=== PATIENT | male | born 1985 | race Caucasian/White ===

== ENCOUNTER 2024-11-06 07:48 | Inpatient (IN) | payer OTHER ==
[~2024-11-06] VITALS: Ht 175.3 cm; Wt 96.0 kg
--- NOTE | 2024-11-06 08:08 | ED.PDOC ---
GI ASSESSMENT HPI Comments HPI: 39 y/o M, BIBA, with PMHx of DM presents to the ED for CC of abdominal pain. EMS reports, patient is coming from work vehicle where friend called emergency medical services d/t patient complaining of abdominal pain with associated symptoms of nausea and vomiting x2days. EMS relays, upon arrival to scene patient was found diaphoretic and lethargic. EKG in the field showed SVT with a HR in the 180's. In route to the ED, patient was given 600mL NS; patient converted into the 130's. Upon arrival, patient's EKG showed ST in the 130's with no change. Patient describes, diarrhea to be loose and yellow in appearance. Patient denies chest pain, shortness of breath, blood in stool, or hematemesis. No other symptoms or modifiers present at this time. Initial Vitals BP: HR: RR: O2: Temp: Past Medical History: DM, "FREQUENT HEART BEATS" Past Surgical History: DENIES ANY Social History: Denies ETOH, smoking, and drug use. Medications: DENIES ANY Allergies: JOSE santacruz, HPI: Poor Historian. REVIEW OF SYSTEMS: CONSTITUTIONAL: Denies acute: fever, diaphoresis, chills, HEAD: Denies acute: headache, photophobia Eyes: Denies acute: Double vision, vision loss, eye pain, eye discharge. EARS: Denies acute: tinnitus, hearing loss, ear discharge, ear pain, THROAT: Denies acute: sore throat, swelling, difficulty swallowing , pain with swallowing, change in voice. NECK: Denies acute: neck pain, neck swelling, stiff neck. HEART: Denies acute : chest pain, palpitations, LUNGS: Denies acute: SOB, wheezing, cough, hemoptysis ABDOMEN: Denies acute: melena , hematemesis, hematochezia SKIN: Denies acute: rash, redness, lesions, itchiness. EXTREMITIES: Denies acute: calf pain, numbness, tingling, weakness, denies pain in extremity. Denies acute: Low back pain. Neuro: Denies acute: focal neurological deficit, motor or sensory focal neurological deficit, tremors, seizure like activity, confusion, dizziness, change in mental status, loss of bowel or bladder function, cauda equina like symptoms. : Denies acute: dysuria, hematuria, flank pain, increase in urinary frequency. PSYCH: Denies acute: hallucination, suicidal ideation, homicidal ideation. PHYSICAL EXAM: General: ------[id number]--acute distress, awake and alert. Head: normocephalic, atraumatic. Neck: supple, trachea is midline, no swelling. Throat: Normal phonation. Eyes:, no erythema, no purulent discharge, no proptosis, no icterus. Heart: regular tachycardia rate in the 130s on EKG, no significant murmur appreciated. Lungs: no apparent respiratory distress, Able to speak in full sentences. No wheezing, no rhonchi, no crackles. No stridors Clear to auscultation bilaterally. Abdomen: Diffuse generalized tender to palpation, non distended, soft, no guarding, no rebound, + bowel sounds. Neuro: Awake, Alert, oriented to name, self, situation, follows commands GCS=15. Speech is normal. Skin: no petechia, no purpura, no cyanosis, non-pale, not jaundice. Lower extremities: --no - Pitting edema no deformity, no focal swelling, no calf TTP. Makes eye contact. moves all four extremities. Face: no apparent facial droop. ED COURSE: DISCLAIMER: This medical document was created using an electronic medical record system with voice recognition software and computerized dictation system. Although this document has been carefully reviewed, there might still be some phonetic and typographical errors. Occasional wrong-word or "sound-alike" substitutions may have occurred due to the inherent limitations of voice recognition software. These areas are purely typographical due to imperfections of the software programs and do not reflect any compromise in the patient's medical care. Please read the chart carefully and recognize, using context, where these substitutions have occurred. Time Seen by MD: 07:50 Reviewed Notes: Nurses Notes, Mitten Stitcher Notes, Medications, Allergies Allergies: Coded Allergies: NO KNOWN ALLERGIES (Unverified , 11/06/24) Home Meds Active Scripts Metformin Hydrochloride (Metformin Hcl) 1,000 Mg Tab, 1 TAB PO BID, #180 TAB 3 Refills Prov:ALLEY FELIX MD 11/09/24 Information Source: Patient, Emergency Med Personnel Mode of Arrival: EMS Timing: Minutes Duration: Since onset Prehospital treatment: None Past Medical History PAST MEDICAL HISTORY: DM Surgical History: Denies all surgeries Family History Family History: Unknown Social History Smoker: Non-Smoker Alcohol: Denies ETOH Use Drugs: Denies Drug Use Lives In: Home Constitutional: reports: sweats; denies: chills, diaphoresis, fatigue, fever, malaise, weakness, others EENTM: denies: blurred vision, double vision, ear bleeding, ear discharge, ear drainage, ear pain, ear ringing, eye pain, eye redness, hearing loss, mouth pain, mouth swelling, nasal discharge, nose bleeding, nose congestion, nose pain, photophobia, tearing, throat pain, throat swelling, voice changes, others Respiratory: denies: cough, hemoptysis, orthopnea, SOB at rest, shortness of breath, SOB with excertion, stridor, wheezing, others Cardiovascular: denies: chest pain, dizzy spells, diaphoresis, Dyspnea on exertion, edema, irregular heart beat, left arm pain, lightheadedness, palpitations, PND, syncope, others Gastrointestinal: reports: abdominal pain, diarrhea, nausea; denies: abdomen distended, blood streaked bowels, constipated, dysphagia, difficulty swallowing, hematemesis, melena, poor appetite, poor fluid intake, rectal bleeding, rectal pain, vomiting, others Genitourinary: denies: burning, dysuria, flank pain, frequency, hematuria, incontinence, penile discharge, penile sore, pain, testicle pain, testicle sw elling, urgency, others Neurological: denies: dizziness, fainting, headache, left sided numbness, left sided weakness, numbness, paresthesia, pre-existing deficit, right sided numbness, right sided weakness, seizure, speech problems, tingling, tremors, weakness, others Musculoskeletal: denies: back pain, gout, joint pain, joint swelling, muscle pain, muscle stiffness, neck pain, others Integumetry: denies: bruises, change in color, change in hair/nails, dryness, laceration, lesions, lumps, rash, wounds, others Allergic/Immunocompromised: denies: Difficulty Healing, Frequent Infections, Hives, Itching, others Hematologic/Lymphatic: denies: anemia, blood clots, easy bleeding, easy bruising, swollen glands, others Endocrine: denies: excessive hunger, excessive sweating, excessive thirst, excessive urination, flushing, intolerance to cold, intolerance to heat, unexplained weight gain, unexplained weight loss, others Psychiatric: denies: anxiety, bipolar disorder, depression, hopeless, panic disorder, schizophrenia, sleepless, suicidal, others All Other Systems: Reviewed and Negative Physical Exam General Appearance: Other HEENT: Other Neck: Other Respiratory: Other Cardiovascular: Other Breast Exam: Other (a) Gastrointestinal: Other (a) Genitalia: Other (a) Pelvic: Other Rectal: Other Extremities: Other Neurologic: Other Cerebellar Function: Other Reflexes: Other Skin: Other Lymphatic: Other Was a procedure done? Was a procedure done?: No GI differential Dx Differential Diagnosis: Appendicitis, Diverticular disease, Gastritis/PUD, Gastroenteritis, Inflammatory BD, Electrolyte Imbalance, Food Poisoning, Bacterial, Viral X-Ray, Labs, Meds, VS Vital Signs Date Time Temp Pulse Resp B/P (MAP) Pulse Ox O2 Delivery O2 Flow Rate FiO2 11/06/24 12:00 118 11/06/24 12:00 98.5 113 17 130/87 (101) 94 98.5 11/06/24 10:47 116 11/06/24 08:55 123 11/06/24 08:30 98.0 140 22 111/83 (92) 98 98.0 11/06/24 08:20 133 27 96 Room Air* 0 21 11/06/24 08:20 98.0 133 27 114/81 (92) 96 98.0 11/06/24 07:51 133 Lab Test 11/06/24 13:07 11/06/24 11:28 11/06/24 10:29 11/06/24 09:34 Range/Units Lactic Acid Level 2.8 *H 3.2 *H 0.4-2.0 mmol/L Troponin I High Sensitivity 4 5 </=54 ng/L Sodium Level 134 L 136-145 mmol/L Potassium Level 3.5 3.5-5.1 mmol/L Chloride Level 100 98-107 mmol/L Carbon Dioxide Level 19 L 20-31 mmol/L Anion Gap 15 5-15 Blood Urea Nitrogen 17 9-23 mg/dL Creatinine 1.37 H 0.700-1.30 mg/dL Glomerular Filtration Rate Calc 67 >90 mL/min BUN/Creatinine Ratio 12.4 10.0-20.0 Serum Glucose 309 H 74-106 mg/dL Calcium Level 7.6 L 8.7-10.4 mg/dL Total Bilirubin 1.1 H 0.2-1.0 mg/dL Aspartate Amino Transferase (AST) 85 H 13-40 U/L Alanine Aminotransferase (ALT) 106 H 7-40 U/L Alkaline Phosphatase 37 L 46-116 U/L Total Protein 5.1 L 5.7-8.2 g/dL Albumin 3.2 3.2-4.8 g/dL Test 11/06/24 08:24 11/06/24 07:57 Range/Units White Blood Count 6.0 4.4-10.8 10^3/uL Red Blood Count 5.65 4.5-5.90 10^6/uL Hemoglobin 16.2 13.5-17.5 g/dL Hematocrit 47.0 41.0-53.0 % Mean Corpuscular Volume 83.2 80.0-100.0 fL Mean Corpuscular Hemoglobin 28.6 28.0-32.0 pg Mean Corpuscular Hemoglobin Concent 34.4 32.0-36.0 g/dL Red Cell Distribution Width 13.5 11.8-14.3 % Platelet Count 220 140-450 10^3/uL Mean Platelet Volume 9.4 6.9-10.8 fL Neutrophils (%) (Auto) 76.5 37.0-80.0 % Lymphocytes (%) (Auto) 14.4 10.0-50.0 % Monocytes (%) (Auto) 8.7 0.0-12.0 % Eosinophils (%) (Auto) 0.0 0.0-7.0 % Basophils (%) (Auto) 0.4 0.0-2.0 % Neutrophils # (Auto) 4.6 1.6-8.6 10 ^3/uL Lymphocytes # (Auto) 0.9 0.4-5.4 10 ^3/uL Monocytes # (Auto) 0.5 0-1.3 10 ^3/uL Eosinophils # (Auto) 0 0-0.8 10 ^3/uL Basophils # (Auto) 0 0-0.2 10 ^3/uL Nucleated Red Blood Cells 0.2 % Sodium Level 132 L 136-145 mmol/L Potassium Level 2.8 L 3.5-5.1 mmol/L Chloride Level 100 98-107 mmol/L Carbon Dioxide Level 14 L 20-31 mmol/L Anion Gap 18 H 5-15 Blood Urea Nitrogen 17 9-23 mg/dL Creatinine 1.49 H 0.700-1.30 mg/dL Glomerular Filtration Rate Calc 61 >90 mL/min BUN/Creatinine Ratio 11.4 10.0-20.0 Serum Glucose 300 H 74-106 mg/dL Hemoglobin A1c 10.0 H <5.7 % A1C Lactic Acid Level 3.5 *H 0.4-2.0 mmol/L Calcium Level 9.3 8.7-10.4 mg/dL Magnesium Level 1.6 1.6-2.6 mg/dL Total Bilirubin 1.5 H 0.2-1.0 mg/dL Aspartate Amino Transferase (AST) 103 H 13-40 U/L Alanine Aminotransferase (ALT) 120 H 7-40 U/L Alkaline Phosphatase 44 L 46-116 U/L Troponin I High Sensitivity 6 </=54 ng/L Total Protein 6.7 5.7-8.2 g/dL Albumin 4.2 3.2-4.8 g/dL Lipase 25 12-53 U/L Urine Color Light-orange Yellow Urine Clarity Turbid H Clear Urine pH 5.5 5.0-9.0 Urine Specific [place] 1.023 1.001-1.035 Urine Protein 1+ H Negative Urine Ketones 2+ H Negative Urine Blood 2+ H Negative /uL Urine Nitrite Negative Negative Urine Bilirubin Negative Negative Urine Urobilinogen Normal Negative mg/dL Urine Leukocyte Esterase Negative Negative /uL Urine RBC 3 0 - 3 /hpf Urine Microscopic WBC 2 0-3 /HPF Urine Squamous Epithelial Cells Few <5 /hpf Urine Bacteria None seen None Seen /hpf Urine Granular Casts Mod 0 /lpf Urine Mucus Few None Seen Urine Glucose 4+ H Normal mg/dL Microbiology Date/Time Source Procedure Growth Status 11/06/24 09:34 Blood Blood Culture - Preliminary NO GROWTH AFTER 72 HOURS OF INCUBATION. Resulted 11/06/24 09:20 Blood Blood Culture - Preliminary NO GROWTH AFTER 72 HOURS OF INCUBATION. Resulted 11/06/24 07:57 Voided Urine Urine Culture - Final Complete [facility] [id number] [facility] [address] Ph: [phone] DIAGNOSTIC IMAGING Diagnostic Imaging Report : [id number] Signed PATIENT: TEREZA OROZCOT: [id number] UNIT: [id number] : 1985 LOC: ER ROOM / BED: / AGE / SEX: 39 / M ADM STATUS: REG ER SERVICE [id number] ORDERING PHYSICIAN: PORSCHE GUTIERREZ DO PROCEDURE(s): CXRP - CHEST PORTABLE REASON: svt, abd pain n/v/d ORDER NUMBER(s): [id number], ACCESSION NUMBER(s): [id number] CHEST RADIOGRAPH Indication: svt, abd pain n/v/d Technique: Single frontal view of the chest was obtained Comparison: None FINDINGS: Lines and Tubes: None Lungs: No focal consolidation. Pleura: No effusion. No pneumothorax. Cardiomediastinal contours: Unremarkable Bones: No acute osseous abnormality. IMPRESSION: No acute cardiopulmonary disease. ATED BY: PRISCILA GUEVARA MD DICTATED DATE/TIME: 11/06/24940 SIGNED BY: PRISCILA GUEVARA MD SIGNED DATE/TIME: 11/06/24940 CC: [place] [address] Ph: [phone] DIAGNOSTIC IMAGING Diagnostic Imaging Report : [id number] Signed PATIENT: TEREZA OROZCOT: [id number] UNIT: [id number] : 1985 LOC: ER ROOM / BED: / AGE / SEX: 39 / M ADM STATUS: REG ER SERVICE 0757 ORDERING PHYSICIAN: PORSCHE GUTIERREZ DO PROCEDURE(s): ABPL - CT AB PEL WO CON-NO ORAL OR IV REASON: svt, abd pain n/v/dsvt, abd pain n/v/d ORDER NUMBER(s): [id number], ACCESSION NUMBER(s): [id number] Exam: CT CT AB PEL WO CON-NO ORAL OR IV History: svt, abd pain n/v/dsvt, abd pain n/v/d Comparison Study: None Technique: Multidetector spiral CT of the abdomen was performed from lung bases to pubic symphysis. Imaging was performed without IV contrast. Axial, coronal and sagittal multiplanar reformats were obtained from the axial data set by the technologist. Radiation Dose : 1. Abdomen/Pelvis: CTDIvol 17.9 mGy, DLP 1128.9 mGy*cm. Findings: Evaluation of solid organs is limited due to lack of intravenous contrast use. Lung Bases: No acute or significant lung base finding. Normal heart size. No pleural or pericardial effusion. Liver: Hepatic steatosis. Hepatomegaly. Gallbladder and Biliary Tree: Unremarkable Spleen: Unremarkable Pancreas: The pancreas is grossly normal in appearance. Adrenal Glands: Unremarkable Kidneys: Kidneys are grossly normal without calculi or hydronephrosis. Bladder: Moderate inflammatory changes associated with the urinary bladder. Bowel: The stomach is grossly normal in appearance. Small bowel and colon are normal in caliber and distribution. The appendix is not visualized; however, no secondary findings of acute appendicitis identified. Ascites: Absent Lymphadenopathy: No mesenteric, retroperitoneal or periportal lymphadenopathy. Abdominal Wall and Mesentery: Nonspecific moderate infiltrative changes in the lower pelvis. There is moderate presacral soft-tissue thickening. Mild inflammatory changes in the left inferior gluteal cleft. Vasculature: The visualized abdominal aorta is normal in size and caliber. Evaluation of abdominal and pelvic vessels is limited due to lack of intravenous contrast. Pelvic Organs: Unremarkable Musculoskeletal: No aggressive focal bony lesions, acute fractures or dislocation. Degenerative changes of the spine. IMPRESSION: Nonspecific moderate inflammatory changes surrounding the urinary bladder and central pelvis. There is presacral soft-tissue thickening, mild perirectal inflammatory change and mild inflammatory change in the left inferior gluteal cleft. ATED BY: DERICK OSMAN MD DICTATED DATE/TIME: 11/06/24920 SIGNED BY: DERICK OSMAN MD SIGNED DATE/TIME: 11/06/24920 CC: Time of 1ST Reevaluation: 08:20 Reevaluation 1ST: Unchanged Patient Education/Counseling: Diagnosis, Treatment Family Education/Counseling: No Family Present Comments Patient presented with the above HPI.---abdominal pain---workup was initiated. patient was found with the above mentioned diagnosis. the following medications were ordered: please refer to order lists of meds and tests obtained by myself Dr. Gutierrez. Patient ED course and VS have been stabilized. Patient has been reassessed in the ED and remained in a stable condition. Pertinent incidental findings were discussed with the patient and/or family. Patient/family voices understanding and is agreeable with plan. Patient has been observed in the ED adequate length of time to insure improvement/stability. Escalation of care considered: Consideration of escalation to observation or admission Patient was ADMITTED to the medicine team for further evaluation and treatment of their presentation. All the reports of any imaging studies that were ordered by myself were reviewed by myself. SEPSIS Sepsis Screen Physician Orders Gripper Installer (11/06/24 ) Chest Portable (11/06/24 07:57) Ova & Parasite Exam (11/06/24 07:57) Ct Ab Pel Wo Con-No Oral Or Iv (11/06/24 07:57) Blood Culture (11/06/24 09:21) Vital Signs Date Time Temp Pulse Resp B/P (MAP) Pulse Ox O2 Delivery O2 Flow Rate FiO2 11/06/24 12:00 118 11/06/24 12:00 98.5 113 17 130/87 (101) 94 98.5 11/06/24 10:47 116 11/06/24 08:55 123 11/06/24 08:30 98.0 140 22 111/83 (92) 98 98.0 11/06/24 08:20 133 27 96 Room Air* 0 21 11/06/24 08:20 98.0 133 27 114/81 (92) 96 98.0 11/06/24 07:51 133 Laboratory Tests Test 11/06/24 08:24 11/06/24 10:29 11/06/24 13:07 Lactic Acid Level 3.5 mmol/L (0.4-2.0) *H 3.2 mmol/L (0.4-2.0) *H 2.8 mmol/L (0.4-2.0) *H White Blood Count 6.0 10^3/uL (4.4-10.8) Departure 1 Departure Time of Disposition: 09:20 Impression: Primary Impression: Abdominal pain Additional Impressions: Diarrhea Hypokalemia Elevated LFTs Abnormal finding on CT scan Sinus tachycardia Disposition: ADMITTED INPATIENT Admit to: Tele Condition: Guarded e-Prescriptions Metformin Hydrochloride (Metformin Hcl) 1,000 Mg Tab 1 TAB PO BID, #180 TAB 3 Refills Prov: ALLEY FELIX MD 11/09/24 Discharged With: Self Critical Care Note Critical Care Time?: Yes (45 min-critical care time only) Stability Stability form required: No Heart Score Heart Score: Heart Score Response (Comments) Value History N/A 0 EKG N/A 0 Age N/A 0 Risk Factors N/A 0 Troponin N/A 0 Total 0 I personally scribed for PORSCHE GUTIERREZ DO ([email or web address]) on 11/06/24 at 08:08. Electronically submitted by Carlee Arredondo ([email or web address]). I personally scribed for PORSCHE GUTIERREZ DO ([email or web address]) on 11/06/24 at 08:19. Electronically submitted by Carlee Arredondo ([email or web address]). I personally scribed for PORSCHE GUTIERREZ DO ([email or web address]) on 11/06/24 at 10:35. Elec tronically submitted by Carlee Arredondo ([email or web address]). I personally scribed for PORSCHE GUTIERREZ DO ([email or web address]) on 11/06/24 at 11:20. Electronically submitted by Carlee Arredondo ([email or web address]). PORSCHE GUTIERREZ DO Nov 06, 2024 08:08
[2024-11-06] MEDS: SODIUM CHLORIDE 0.9% 1,000 ML IV ONE ×3 (08:19→11:13)
[2024-11-06 08:20] VITALS: PULSE 133; RESP 27; O2SAT 96
[2024-11-06 08:48] LABS: Hematocrit 47.0 % (41.0-53.0); Hemoglobin 16.2 g/dL (13.5-17.5); Mean Corpuscular Hemoglobin 28.6 pg (28.0-32.0); Mean Corpuscular Volume 83.2 fL (80.0-100.0); Nucleated Red Blood Cells % 0.2 %
[2024-11-06] MEDS: ONDANSETRON HCL 4 MG/2 ML VIAL IV ONE (08:57)
[2024-11-06 09:08] LABS: Albumin 4.2 g/dL (3.2-4.8); Anion Gap 18 (5-15); BUN/Creatinine Ratio 11.4 (10.0-20.0); Blood Urea Nitrogen 17 mg/dL (9-23); Calcium 9.3 mg/dL (8.7-10.4); Chloride 100 mmol/L (98-107); Total Protein 6.7 g/dL (5.7-8.2)
[2024-11-06 09:09] LABS: Lactic Acid w/Reflex 3.5 mmol/L (0.4-2.0)
[2024-11-06 09:10] LABS: Alanine Aminotransferase 120 U/L (7-40); Alkaline Phosphatase 44 U/L (46-116); Bilirubin, Total 1.5 mg/dL (0.2-1.0); Carbon Dioxide 14 mmol/L (20-31); Glucose 300 mg/dL (74-106); Magnesium 1.6 mg/dL (1.6-2.6); Potassium 2.8 mmol/L (3.5-5.1); Sodium 132 mmol/L (136-145)
--- NOTE | 2024-11-06 09:24 | DVH ---
Exam: CT CT AB PEL WO CON-NO ORAL OR IV History: svt, abd pain n/v/dsvt, abd pain n/v/d Comparison Study: None Technique: Multidetector spiral CT of the abdomen was performed from lung bases to pubic symphysis. I maging was performed without IV contrast. Axial, coronal and sagittal multiplanar reformats were obta ined from the axial data set by the technologist. Radiation Dose : 1. Abdomen/Pelvis: CTDIvol 17.9 mGy, DLP 1128.9 mGy*cm. Findings: Evaluation of solid organs is limited due to lack of intravenous contrast use. Lung Bases: No acute or significant lung base finding. Normal heart size. No pleural or pericardial effusion. Liver: Hepatic steatosis. Hepatomegaly. Gallbladder and Biliary Tree: Unremarkable Spleen: Unremarkable Pancreas: The pancreas is grossly normal in appearance. Adrenal Glands: Unremarkable Kidneys: Kidneys are grossly normal without calculi or hydronephrosis. Bladder: Moderate inflammatory changes associated with the urinary bladder. Bowel: The stomach is grossly normal in appearance. Small bowel and colon are normal in caliber and d istribution. The appendix is not visualized; however, no secondary findings of acute appendicitis reji ntified. Ascites: Absent Lymphadenopathy: No mesenteric, retroperitoneal or periportal lymphadenopathy. Abdominal Wall and Mesentery: Nonspecific moderate infiltrative changes in the lower pelvis. There is moderate presacral soft-tissue thickening. Mild inflammatory changes in the left inferior gluteal cl eft. Vasculature: The visualized abdominal aorta is normal in size and caliber. Evaluation of abdominal a nd pelvic vessels is limited due to lack of intravenous contrast. Pelvic Organs: Unremarkable Musculoskeletal: No aggressive focal bony lesions, acute fractures or dislocation. Degenerative travis es of the spine. IMPRESSION: Nonspecific moderate inflammatory changes surrounding the urinary bladder and central pelvis. There is presacral soft-tissue thickening, mild perirectal inflammatory change and mild inflammatory change in the left inferior gluteal cleft.
[2024-11-06] MEDS: POTASSIUM CHL 20 Meq TABLET PO ONE (09:42)
[2024-11-06] MEDS: CIPROFLOXACIN 400MG/200ML 200 ML IV ONE (09:42)
--- NOTE | 2024-11-06 09:44 | DVH ---
CHEST RADIOGRAPH Indication: svt, abd pain n/v/d Technique: Single frontal view of the chest was obtained Comparison: None FINDINGS: Lines and Tubes: None Lungs: No focal consolidation. Pleura: No effusion. No pneumothorax. Cardiomediastinal contours: Unremarkable Bones: No acute osseous abnormality. IMPRESSION: No acute cardiopulmonary disease.
[2024-11-06 11:14] LABS: Lipase 25 U/L (12-53)
[2024-11-06 12:27] LABS: Albumin 3.2 g/dL (3.2-4.8); Anion Gap 15 (5-15); BUN/Creatinine Ratio 12.4 (10.0-20.0); Bilirubin, Total 1.1 mg/dL (0.2-1.0); Blood Urea Nitrogen 17 mg/dL (9-23); Chloride 100 mmol/L (98-107)
[2024-11-06 12:31] LABS: Alanine Aminotransferase 106 U/L (7-40); Alkaline Phosphatase 37 U/L (46-116); Calcium 7.6 mg/dL (8.7-10.4); Carbon Dioxide 19 mmol/L (20-31); Glucose 309 mg/dL (74-106); Potassium 3.5 mmol/L (3.5-5.1); Sodium 134 mmol/L (136-145); Total Protein 5.1 g/dL (5.7-8.2)
[2024-11-06 12:41] LABS: Urine Protein, UAD 1+ (Negative)
[2024-11-06] MEDS ORDERED: MORPHINE SULFATE INJ 2 MG/ml SYRG IV PRN ×2 (14:00)
[2024-11-06] MEDS ORDERED: ONDANSETRON HCL 4 MG/2 ML VIAL IV PRN (14:00)
[2024-11-06] MEDS ORDERED: NITROGLYCERIN 0.4 MG SL TAB SL PRN (14:00)
[2024-11-06] MEDS ORDERED: DEXTROSE (50%) 50ML SYRG IV PRN (14:00)
--- NOTE | 2024-11-06 14:04 | DVHHP2 ---
History of Present Illness Reason for Visit: Abdominal pain History of Present Illness Melissa Smith is a 39-year-old male with past medical history of diabetes who presents to the ED with abdominal pain, nausea and diarrhea x2 days. Patient also states that the abdominal pain radiated to his chest. He reports no chest pain at this time. 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 He states that he was driving here and was experiencing these symptoms when his friend called EMS for help. Patient reports that he has been having yellowish soft formed diarrhea. He reports that the abdominal pain is in his left and right lower quadrants. Patient states that there are no triggering or alleviating factors. He also reports that he took a Welsh pain medication to help with the abdominal pain with no relief. A Welsh enrollment advisor was used during this process. Also discussed with patient was his left buttock area he states that there was some discomfort there but no longer in pain. Upon examination with the primary nurse and student nurse there is erythema noted but no wound or broken skin. Patient denies any chest pain, shortness of breath, fever, chills, lightheade dness, weakness, dizziness, vomiting, recent trauma or injury, recent sick contacts, recent ingestion of spoiled food, or urinary symptoms. Patient reports that he smokes couple of cigarettes per day. Endocrine: Diabetes Past Surgical History: None Family History: DM, Other (Mom with diabetes) Smoke: <1 pack per day ALCOHOL: none Drugs: None Lives: Other Domestic Violence: Neg Review of Systems Gastrointestinal: Nausea, Abdominal Pain, Diarrhea Allergies: Coded Allergies: NO KNOWN ALLERGIES (Unverified , 11/06/24) Exam Vital Signs Vital Signs Date Time Temp Pulse Resp B/P (MAP) Pulse Ox O2 Delivery O2 Flow Rate FiO2 11/06/24 12:00 98.5 113 17 130/87 (101) 94 98.5 11/06/24 08:20 Room Air* 0 21 General Appearance: Alert, Oriented X3, Cooperative, No acute distress HEENT: Atraumatic, PERRLA, EOMI Respiratory: Clear to auscultation, Normal air movement Cardiovascular: Normal S1, Normal S2 Abdominal: Normal bowel sounds, Soft Extremities: No clubbing, No cyanosis, No edema, Normal pulses Neuro: Normal speech, Strength at 5/5 X4 ext, Normal tone, Sensation intact Psych/Mental Status: Mental status NL, Mood NL Labs/Xrays Labs Test 11/06/24 13:07 11/06/24 11:28 11/06/24 10:29 11/06/24 08:24 Range/Units Troponin I High Sensitivity 4 </=54 ng/L Sodium Level 134 L 136-145 mmol/L Potassium Level 3.5 3.5-5.1 mmol/L Chloride Level 100 98-107 mmol/L Carbon Dioxide Level 19 L 20-31 mmol/L Anion Gap 15 5-15 Blood Urea Nitrogen 17 9-23 mg/dL Creatinine 1.37 H 0.700-1.30 mg/dL Glomerular Filtration Rate Calc 67 >90 mL/min BUN/Creatinine Ratio 12.4 10.0-20.0 Serum Glucose 309 H 74-106 mg/dL Calcium Level 7.6 L 8.7-10.4 mg/dL Total Bilirubin 1.1 H 0.2-1.0 mg/dL Aspartate Amino Transferase (AST) 85 H 13-40 U/L Alanine Aminotransferase (ALT) 106 H 7-40 U/L Alkaline Phosphatase 37 L 46-116 U/L Total Protein 5.1 L 5.7-8.2 g/dL Albumin 3.2 3.2-4.8 g/dL White Blood Count 6.0 4.4-10.8 10^3/uL Red Blood Count 5.65 4.5-5.90 10^6/uL Hemoglobin 16.2 13.5-17.5 g/dL Hematocrit 47.0 41.0-53.0 % Mean Corpuscular Volume 83.2 80.0-100.0 fL Mean Corpuscular Hemoglobin 28.6 28.0-32.0 pg Mean Corpuscular Hemoglobin Concent 34.4 32.0-36.0 g/dL Red Cell Distribution Width 13.5 11.8-14.3 % Platelet Count 220 140-450 10^3/uL Mean Platelet Volume 9.4 6.9-10.8 fL Neutrophils (%) (Auto) 76.5 37.0-80.0 % Lymphocytes (%) (Auto) 14.4 10.0-50.0 % Monocytes (%) (Auto) 8.7 0.0-12.0 % Eosinophils (%) (Auto) 0.0 0.0-7.0 % Basophils (%) (Auto) 0.4 0.0-2.0 % Neutrophils # (Auto) 4.6 1.6-8.6 10 ^3/uL Lymphocytes # (Auto) 0.9 0.4-5.4 10 ^3/uL Monocytes # (Auto) 0.5 0-1.3 10 ^3/uL Eosinophils # (Auto) 0 0-0.8 10 ^3/uL Basophils # (Auto) 0 0-0.2 10 ^3/uL Nucleated Red Blood Cells 0.2 % Magnesium Level 1.6 1.6-2.6 mg/dL Lipase 25 12-53 U/L Test 11/06/24 07:57 Range/Units Urine Color Light-orange Yellow Urine Clarity Turbid H Clear Urine pH 5.5 5.0-9.0 Urine Specific [place] 1.023 1.001-1.035 Urine Protein 1+ H Negative Urine Ketones 2+ H Negative Urine Blood 2+ H Negative /uL Urine Nitrite Negative Negative Urine Bilirubin Negative Negative Urine Urobilinogen Normal Negative mg/dL Urine Leukocyte Esterase Negative Negative /uL Urine RBC 3 0 - 3 /hpf Urine Microscopic WBC 2 0-3 /HPF Urine Squamous Epithelial Cells Few <5 /hpf Urine Bacteria None seen None Seen /hpf Urine Granular Casts Mod 0 /lpf Urine Mucus Few None Seen Urine Glucose 4+ H Normal mg/dL CHEST RADIOGRAPH Indication: svt, abd pain n/v/d Technique: Single frontal view of the chest was obtained Comparison: None FINDINGS: Lines and Tubes: None Lungs: No focal consolidation. Pleura: No effusion. No pneumothorax. Cardiomediastinal contours: Unremarkable Bones: No acute osseous abnormality. IMPRESSION: No acute cardiopulmonary disease. Exam: CT CT AB PEL WO CON-NO ORAL OR IV History: svt, abd pain n/v/dsvt, abd pain n/v/d Comparison Study: None Technique: Multidetector spiral CT of the abdomen was performed from lung bases to pubic symphysis. Imaging was performed without IV contrast. Axial, coronal and sagittal multiplanar reformats were obtained from the axial data set by the technologist. Radiation Dose : 1. Abdomen/Pelvis: CTDIvol 17.9 mGy, DLP 1128.9 mGy*cm. Findings: Evaluation of solid organs is limited due to lack of intravenous contrast use. Lung Bases: No acute or significant lung base finding. Normal heart size. No pleural or pericardial effusion. Liver: Hepatic steatosis. Hepatomegaly. Gallbladder and Biliary Tree: Unremarkable Spleen: Unremarkable Pancreas: The pancreas is grossly normal in appearance. Adrenal Glands: Unremarkable Kidneys: Kidneys are grossly normal without calculi or hydronephrosis. Bladder: Moderate inflammatory changes associated with the urinary bladder. Bowel: The stomach is grossly normal in appearance. Small bowel and colon are normal in caliber and distribution. The appendix is not visualized; however, no secondary findings of acute appendicitis identified. Ascites: Absent Lymphadenopathy: No mesenteric, retroperitoneal or periportal lymphadenopathy. Abdominal Wall and Mesentery: Nonspecific moderate infiltrative changes in the lower pelvis. There is moderate presacral soft-tissue thickening. Mild inflammatory changes in the left inferior gluteal cleft. Vasculature: The visualized abdominal aorta is normal in size and caliber. Evaluation of abdominal and pelvic vessels is limited due to lack of intravenous contrast. Pelvic Organs: Unremarkable Musculoskeletal: No aggressive focal bony lesions, acute fractures or dislocation. Degenerative changes of the spine. IMPRESSION: Nonspecific moderate inflammatory changes surrounding the urinary bladder and central pelvis. There is presacral soft-tissue thickening, mild perirectal inflammatory change and mild inflammatory change in the left inferior gluteal cleft. Assessment/Plan Assessment/Plan Assessment Lactic acidosis likely septic Intractable abdominal pain with nausea and diarrhea Rule out C diff Hyponatremia JOSE D Hyperbilirubinemia Erythema on left gluteal possible cellulitis Obesity Tobacco use History of diabetes Plan UA CT abdomen and pelvis NS 3 L given ED Ciprofloxacin given in ED IV antibiotics-vancomycin +Zosyn Antiemetics Pain management Blood cultures EKG Troponin negative x3 Stool OB Stool WBC Stool bacterial Ova and parasites C diff panel EKG Chest x-ray Mag level Lipase Wound culture Gram stain Diet IV fluids Per patient does not take any prescribed home medications DVT prophylaxis-not indicated patient ambulating PUD prophylaxis-PPIs Discussed plan of care with patient and nurse Counseled patient on lifestyle modification, diet, and exercise Counseled patient on cessation of tobacco use [id number] Behavior change smoking greater than 10 minutes [id number] Preventive counseling healthy eating habits, physical activity, and regular checkups Plan discussed with: Patient My Orders Orders - IGOR MINAYA Procedure Category Date Status Time Hemoglobin A1c LAB 11/06/24 Verified 14:00 Glucose Blood PHA 11/06/24 Verified (Accu-Chek Comfort 17:00 Mild Sliding Scale PHA 11/06/24 Verified 17:00 Dextrose 50% Syringe PHA 11/06/24 Verified 14:00 Admit ADMIT 11/06/24 Verified 14:00 Allergies CHRISTEL 11/06/24 Verified 14:00 Code Status CODE 11/06/24 Verified 14:00 Hydrocodone-Acet PHA 11/06/24 Verified 5/325mg Tab ([place] 14:00 Ondansetron Hcl PHA 11/06/24 Verified (Zofran) 14:00 Complete Blood Count LAB 11/07/24 Verified 04:00 Date of Service: Nov 06, 2024 Billing Provider: IGOR MINAYA Common Visit Codes: [id number] INP/OBS CARE (HIGH) Secondary Visit Codes: [id number] COUNSELING IND, [id number] CHNG SMOKING >10MIN IGOR MINAYA Nov 06, 2024 14:04
[2024-11-06 14:09] LABS: Lactic Acid w/Reflex 2.8 mmol/L (0.4-2.0)
[2024-11-06] MEDS: SODIUM CHLORIDE 0.9% 1,000 ML IV SCH (14:45)
[2024-11-06] MEDS ORDERED: VANCOMYCIN PER PHARMACY 0 MG IV SCH (15:00)
[2024-11-06] MEDS: PIPERACILLIN-TAZOB 3.375GM 100 ML IV ONE (15:36)
[2024-11-06] MEDS: PANTOPRAZOLE 40 MG/10 ML VIAL INJ IV SCH (15:53)
[2024-11-06] MEDS: VANCOMYCIN 1GM/200ML PM 250 ML IV SCH (16:57)
[2024-11-06] MEDS: ACCU-CHEK COMFORT CURVE STRIP VI SCH (17:10)
[2024-11-06] MEDS: InsuLIN REG 1unit/0.01ml Soln (100units/ml) SC SCH (17:13)
[2024-11-06 17:40] VITALS: BP 120/77; PULSE 125; PULSE 154; RESP 18; RESP 20; TEMP 97.3; O2SAT 93; O2SAT 98
[2024-11-06 21:00] VITALS: BP_SYST 106; BP_DIAS 55; BP_DIAS 74; PULSE 124; PULSE 84; RESP 18; RESP 20; TEMP 97.7; O2SAT 94
[2024-11-06] MEDS: PIPERACILLIN-TAZOB 3.375GM 100 ML IV SCH (22:33)
[2024-11-07] VITALS (7 sets, daily range): BP systolic 101–131; BP diastolic 58–94; PULSE 130–146; RESP 17–22; TEMP 97.9–100.6; O2SAT 94–97
[2024-11-07] MEDS: ACETAMINOPHEN 325 MG TAB PO PRN (00:41)
[2024-11-07 07:14] LABS: Hematocrit 42.5 % (41.0-53.0); Hemoglobin 14.4 g/dL (13.5-17.5); Mean Corpuscular Hemoglobin 28.0 pg (28.0-32.0); Mean Corpuscular Volume 82.5 fL (80.0-100.0); Nucleated Red Blood Cells % 0.2 %
[2024-11-07 07:24] LABS: Albumin 3.7 g/dL (3.2-4.8); Anion Gap 17 (5-15); BUN/Creatinine Ratio 11.4 (10.0-20.0); Blood Urea Nitrogen 13 mg/dL (9-23); Calcium 9.3 mg/dL (8.7-10.4); Chloride 104 mmol/L (98-107); Sodium 136 mmol/L (136-145); Total Protein 6.1 g/dL (5.7-8.2)
[2024-11-07 07:25] LABS: Bilirubin, Total 0.8 mg/dL (0.2-1.0)
[2024-11-07 07:29] LABS: Alanine Aminotransferase 80 U/L (7-40); Alkaline Phosphatase 35 U/L (46-116); Carbon Dioxide 15 mmol/L (20-31); Glucose 189 mg/dL (74-106); Potassium 3.1 mmol/L (3.5-5.1)
[2024-11-07] MEDS: VANCOMYCIN 1.5GM/300ML 300 ML IV SCH (12:03)
--- NOTE | 2024-11-07 12:51 | DVHPN2 ---
Reviewed: Care Plan, H&P, Labs, Medications, Previous Orders, Radiology Changes from previous H/P or p: No Changes Gastrointestinal: Nausea, Abdominal Pain, Diarrhea Objective Vitals Vital Signs Date Time Temp Pulse Resp B/P (MAP) Pulse Ox O2 Delivery O2 Flow Rate FiO2 11/07/24 09:00 97.9 137 18 131/90 (104) 97 97.9 11/06/24 20:00 Room Air* 0 21 Intake/Output Intake and Output 11/07/24 07:00 Intake Total 4250 ml Balance 4250 ml Intake Oral 500 ml IV Total 3750 ml # Voids 4 # Bowel Movements 1 Medications Current Medications Medications Dose Ordered Sig/Dada Route Start Time Stop Time Status Last Admin Dose Admin Diagnostic Test (Pha) 1 strip ACHS 11/06/24 17:00 11/07/24 11:57 1 STRIP Insulin Human Regular ACHS SC 11/06/24 17:00 11/07/24 11:59 4 UNITS Dextrose 50 ml UD PRN IV 11/06/24 14:00 Acetaminophen/ Hydrocodone Bitart 1 tab Q4HP PRN PO 11/06/24 14:00 Ondansetron HCl 4 mg Q4HP PRN IV 11/06/24 14:00 Acetaminophen 650 mg Q6HP PRN PO 11/06/24 14:00 11/07/24 00:41 650 MG Morphine Sulfate 2 mg Q4HPRN PRN IV 11/06/24 14:00 Nitroglycerin 0.4 mg Q5MINP PRN SL 11/06/24 14:00 Morphine Sulfate 2 mg Q30M PRN IV 11/06/24 14:00 Sodium Chloride 1,000 ml @ 125 mls/hr Q8H IV 11/06/24 14:45 11/06/24 23:09 125 MLS/HR Vancomycin HCl 0 ml @ 0 mls/hr UD IV 11/06/24 15:00 Piperacillin Sod/ Tazobactam Sod 100 ml @ 25 mls/hr Q8HR IV 11/06/24 22:00 11/07/24 05:23 25 MLS/HR Pantoprazole Sodium 40 mg DAILY IV 11/06/24 15:45 11/07/24 10:59 40 MG Vancomycin HCl 300 ml @ 200 mls/hr Q12H IV 11/07/24 10:00 11/07/24 12:03 200 MLS/HR Laboratory Results Laboratory Tests 11/07/24 06:15 Chemistry Test 11/07/24 06:15 Albumin 3.7 g/dL (3.2-4.8) Calcium Level 9.3 mg/dL (8.7-10.4) Total Protein 6.1 g/dL (5.7-8.2) LFT Test 11/07/24 06:15 Alanine Aminotransferase (ALT) 80 U/L (7-40) H Alkaline Phosphatase 35 U/L (46-116) L Aspartate Amino Transferase (AST) 57 U/L (13-40) H Total Bilirubin 0.8 mg/dL (0.2-1.0) Urinalysis Test 11/06/24 07:57 Urine Color Light-orange (Yellow) Urine Clarity Turbid (Clear) H Urine pH 5.5 (5.0-9.0) Urine Specific [place] 1.023 (1.001-1.035) Urine Protein 1+ (Negative) H Urine Ketones 2+ (Negative) H Urine Blood 2+ /uL (Negative) H Urine Nitrite Negative (Negative) Urine Bilirubin Negative (Negative) Urine Urobilinogen Normal mg/dL (Negative) Urine Leukocyte Esterase Negative /uL (Negative) Urine RBC 3 /hpf (0 - 3) Urine Microscopic WBC 2 /HPF (0-3) Urine Squamous Epithelial Cells Few /hpf (<5) Urine Bacteria None seen /hpf (None Seen) Urine Granular Casts Mod /lpf (0) Urine Mucus Few (None Seen) Urine Glucose 4+ mg/dL (Normal) H Microbiology Microbiology Date/Time Source Procedure Growth Status 11/06/24 14:30 Stool Stool Culture - Preliminary Resulted 11/06/24 14:30 Stool Shiga Toxin I & II - Final Resulted 11/06/24 14:30 Stool Clostridium difficile Toxin Assay - Final Resulted 11/06/24 09:34 Blood Blood Culture - Preliminary NO GROWTH AFTER 24 HOURS OF INCUBATION. Resulted 11/06/24 07:57 Voided Urine Urine Culture - Preliminary Resulted Labs and/or images reviewed: Labs reviewed by me, Image(s) reviewed by me Assessment/Plan Assessment/Plan Uncontrolled diabetes with blood sugars 300 A1c 10.0: Insulin aggressive sliding scale Abdominal pain with the nausea and diarrhea: C diff negative stool cultures negative blood cultures negative JOSE D Chronic current smoker Acute lactic acidosis Acute dehydration Plan discussed with: Patient Date of Service: Nov 07, 2024 Billing Provider: ALLEY FELIX MD Common Visit Codes: [id number] INP/OBS CARE(HIGH) ALLEY FELIX MD Nov 07, 2024 12:51
[2024-11-07] MEDS ORDERED: DEXTROSE (50%) 50ML SYRG IV PRN ×2 (17:15)
[2024-11-07] MEDS: InsuLIN REG 1unit/0.01ml Soln (100units/ml) SC SCH ×2 (18:06→22:14)
[2024-11-07] MEDS ORDERED: ACCU-CHEK COMFORT CURVE STRIP VI SCH (22:00)
[2024-11-07] MEDS ORDERED: InsuLIN REG 1unit/0.01ml Soln (100units/ml) SC SCH (22:00)
[2024-11-07] MEDS: ACCU-CHEK COMFORT CURVE STRIP VI SCH (22:10)
[2024-11-08 01:00] VITALS: BP 111/72; PULSE 126; RESP 22; TEMP 100.1; O2SAT 95
[2024-11-08 05:00] VITALS: BP 121/79; PULSE 122; RESP 24; TEMP 97.4; O2SAT 96
[2024-11-08] MEDS ORDERED: InsuLIN REG 1unit/0.01ml Soln (100units/ml) SC SCH (07:00)
--- NOTE | 2024-11-08 08:52 | DVHPN2 ---
Reviewed: Care Plan, H&P, Labs, Medications, Previous Orders, Radiology Changes from previous H/P or p: No Changes Gastrointestinal: Nausea, Abdominal Pain, Diarrhea Objective Vitals Vital Signs Date Time Temp Pulse Resp B/P (MAP) Pulse Ox O2 Delivery O2 Flow Rate FiO2 11/08/24 05:00 97.4 122 24 121/79 (93) 96 97.4 11/07/24 20:00 Room Air* 0 21 Intake/Output Intake and Output 11/08/24 07:00 Intake Total 1375 ml Balance 1375 ml Intake Oral 1275 ml IV Total 100 ml # Voids 6 Medications Current Medications Medications Dose Ordered Sig/Dada Route Start Time Stop Time Status Last Admin Dose Admin Acetaminophen/ Hydrocodone Bitart 1 tab Q4HP PRN PO 11/06/24 14:00 Ondansetron HCl 4 mg Q4HP PRN IV 11/06/24 14:00 Acetaminophen 650 mg Q6HP PRN PO 11/06/24 14:00 11/08/24 00:30 650 MG Morphine Sulfate 2 mg Q4HPRN PRN IV 11/06/24 14:00 Nitroglycerin 0.4 mg Q5MINP PRN SL 11/06/24 14:00 Morphine Sulfate 2 mg Q30M PRN IV 11/06/24 14:00 Sodium Chloride 1,000 ml @ 125 mls/hr Q8H IV 11/06/24 14:45 11/06/24 23:09 125 MLS/HR Pantoprazole Sodium 40 mg DAILY IV 11/06/24 15:45 11/07/24 10:59 40 MG Diagnostic Test (Pha) 1 strip ACHS 11/07/24 22:00 11/08/24 06:34 1 STRIP Insulin Human Regular AC SC 11/07/24 18:01 11/08/24 06:34 4 UNITS Insulin Human Regular HS SC 11/07/24 22:00 11/07/24 22:14 4 UNITS Dextrose 50 ml UD PRN IV 11/07/24 17:15 Laboratory Results Laboratory Tests 11/07/24 06:15 Urinalysis Test 11/06/24 07:57 Urine Color Light-orange (Yellow) Urine Clarity Turbid (Clear) H Urine pH 5.5 (5.0-9.0) Urine Specific [place] 1.023 (1.001-1.035) Urine Protein 1+ (Negative) H Urine Ketones 2+ (Negative) H Urine Blood 2+ /uL (Negative) H Urine Nitrite Negative (Negative) Urine Bilirubin Negative (Negative) Urine Urobilinogen Normal mg/dL (Negative) Urine Leukocyte Esterase Negative /uL (Negative) Urine RBC 3 /hpf (0 - 3) Urine Microscopic WBC 2 /HPF (0-3) Urine Squamous Epithelial Cells Few /hpf (<5) Urine Bacteria None seen /hpf (None Seen) Urine Granular Casts Mod /lpf (0) Urine Mucus Few (None Seen) Urine Glucose 4+ mg/dL (Normal) H Microbiology Microbiology Date/Time Source Procedure Growth Status 11/06/24 14:30 Stool Stool Culture - Preliminary Resulted 11/06/24 14:30 Stool Shiga Toxin I & II - Final Resulted 11/06/24 14:30 Stool Clostridium difficile Toxin Assay - Final Resulted 11/06/24 09:34 Blood Blood Culture - Preliminary NO GROWTH AFTER 24 HOURS OF INCUBATION. 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
[2024-11-08 09:00] VITALS: BP 125/87; PULSE 123; RESP 17; TEMP 98.5; O2SAT 96
[2024-11-08] MEDS: HYDROcodone-ACET 5/325MG TAB PO PRN (09:47)
[2024-11-08 13:00] VITALS: BP 94/72; PULSE 131; RESP 17; TEMP 98.2; O2SAT 97
[2024-11-08 17:00] VITALS: BP 116/87; PULSE 74; RESP 16; TEMP 97.8; O2SAT 94
[2024-11-08 21:00] VITALS: BP 128/80; PULSE 133; RESP 18; TEMP 99; O2SAT 96
[2024-11-09 01:00] VITALS: BP 123/90; PULSE 123; RESP 20; TEMP 98.6; O2SAT 96
[2024-11-09 05:00] VITALS: BP 131/84; PULSE 126; RESP 20; TEMP 98.1; O2SAT 94
[2024-11-09 08:00] VITALS: RESP 20
[2024-11-09 09:00] VITALS: BP 113/86; PULSE 127; RESP 18; TEMP 98.9; O2SAT 96
[2024-11-09] MEDS ORDERED: METF-372 PO (09:54)
--- NOTE | 2024-11-09 09:55 | DVHPN2 ---
Reviewed: Care Plan, H&P, Labs, Medications, Previous Orders, Radiology Changes from previous H/P or p: No Changes Gastrointestinal: Nausea, Abdominal Pain, Diarrhea Objective Vitals Vital Signs Date Time Temp Pulse Resp B/P (MAP) Pulse Ox O2 Delivery O2 Flow Rate FiO2 11/09/24 09:00 98.9 127 18 113/86 (95) 96 98.9 11/09/24 08:00 Room Air* 0 21 Intake/Output Intake and Output 11/09/24 07:00 Intake Total 2030 ml Balance 2030 ml Intake Oral 2030 ml # Voids 10 # Bowel Movements 6 Medications Current Medications Medications Dose Ordered Sig/Dada Route Start Time Stop Time Status Last Admin Dose Admin Acetaminophen/ Hydrocodone Bitart 1 tab Q4HP PRN PO 11/06/24 14:00 11/08/24 09:47 1 TAB Ondansetron HCl 4 mg Q4HP PRN IV 11/06/24 14:00 Acetaminophen 650 mg Q6HP PRN PO 11/06/24 14:00 11/08/24 00:30 650 MG Morphine Sulfate 2 mg Q4HPRN PRN IV 11/06/24 14:00 Nitroglycerin 0.4 mg Q5MINP PRN SL 11/06/24 14:00 Morphine Sulfate 2 mg Q30M PRN IV 11/06/24 14:00 Sodium Chloride 1,000 ml @ 125 mls/hr Q8H IV 11/06/24 14:45 11/06/24 23:09 125 MLS/HR Pantoprazole Sodium 40 mg DAILY IV 11/06/24 15:45 11/07/24 10:59 40 MG Diagnostic Test (Pha) 1 strip ACHS 11/07/24 22:00 11/09/24 06:03 1 STRIP Insulin Human Regular AC SC 11/07/24 18:01 11/09/24 06:08 12 UNITS Insulin Human Regular HS SC 11/07/24 22:00 11/08/24 22:08 4 UNITS Dextrose 50 ml UD PRN IV 11/07/24 17:15 Laboratory Results Laboratory Tests 11/07/24 06:15 Urinalysis Test 11/06/24 07:57 Urine Color Light-orange (Yellow) Urine Clarity Turbid (Clear) H Urine pH 5.5 (5.0-9.0) Urine Specific [place] 1.023 (1.001-1.035) Urine Protein 1+ (Negative) H Urine Ketones 2+ (Negative) H Urine Blood 2+ /uL (Negative) H Urine Nitrite Negative (Negative) Urine Bilirubin Negative (Negative) Urine Urobilinogen Normal mg/dL (Negative) Urine Leukocyte Esterase Negative /uL (Negative) Urine RBC 3 /hpf (0 - 3) Urine Microscopic WBC 2 /HPF (0-3) Urine Squamous Epithelial Cells Few /hpf (<5) Urine Bacteria None seen /hpf (None Seen) Urine Granular Casts Mod /lpf (0) Urine Mucus Few (None Seen) Urine Glucose 4+ mg/dL (Normal) H Microbiology Microbiology Date/Time Source Procedure Growth Status 11/06/24 14:30 Stool Stool Culture - Final Complete 11/06/24 14:30 Stool Shiga Toxin I & II - Final Complete 11/06/24 14:30 Stool Clostridium difficile Toxin Assay - Final Complete 11/06/24 09:34 Blood Blood Culture - Preliminary NO GROWTH AFTER 72 HOURS OF INCUBATION. 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
--- NOTE | 2024-11-09 10:00 | DVHDS2 ---
Discharge Summary Date of Admission Nov 06, 2024 at 14:00 Date of Discharge: Nov 09, 2024 Admitting Diagnosis Generalized weakness Wounds: None Labs/Diagnostic Data: Laboratory Results Test 11/09/24 05:58 11/07/24 06:15 11/06/24 15:00 11/06/24 14:30 POC Glucose 259 mg/dl (70-106) White Blood Count 4.8 10^3/uL (4.4-10.8) Red Blood Count 5.15 10^6/uL (4.5-5.90) Hemoglobin 14.4 g/dL (13.5-17.5) Hematocrit 42.5 % (41.0-53.0) Mean Corpuscular Volume 82.5 fL (80.0-100.0) Mean Corpuscular Hemoglobin 28.0 pg (28.0-32.0) Mean Corpuscular Hemoglobin Concent 33.9 g/dL (32.0-36.0) Red Cell Distribution Width 13.8 % (11.8-14.3) Platelet Count 205 10^3/uL (140-450) Mean Platelet Volume 9.4 fL (6.9-10.8) Neutrophils (%) (Auto) 77.2 % (37.0-80.0) Lymphocytes (%) (Auto) 14.5 % (10.0-50.0) Monocytes (%) (Auto) 7.9 % (0.0-12.0) Eosinophils (%) (Auto) 0.3 % (0.0-7.0) Basophils (%) (Auto) 0.1 % (0.0-2.0) Neutrophils # (Auto) 3.7 10 ^3/uL (1.6-8.6) Lymphocytes # (Auto) 0.7 10 ^3/uL (0.4-5.4) Monocytes # (Auto) 0.4 10 ^3/uL (0-1.3) Eosinophils # (Auto) 0 10 ^3/uL (0-0.8) Basophils # (Auto) 0 10 ^3/uL (0-0.2) Nucleated Red Blood Cells 0.2 % Sodium Level 136 mmol/L (136-145) Potassium Level 3.1 mmol/L (3.5-5.1) Chloride Level 104 mmol/L (98-107) Carbon Dioxide Level 15 mmol/L (20-31) Anion Gap 17 (5-15) Blood Urea Nitrogen 13 mg/dL (9-23) Creatinine 1.14 mg/dL (0.700-1.30) Glomerular Filtration Rate Calc 84 mL/min (>90) BUN/Creatinine Ratio 11.4 (10.0-20.0) Serum Glucose 189 mg/dL (74-106) Calcium Level 9.3 mg/dL (8.7-10.4) Total Bilirubin 0.8 mg/dL (0.2-1.0) Aspartate Amino Transferase (AST) 57 U/L (13-40) Alanine Aminotransferase (ALT) 80 U/L (7-40) Alkaline Phosphatase 35 U/L (46-116) Total Protein 6.1 g/dL (5.7-8.2) Albumin 3.7 g/dL (3.2-4.8) Random Vancomycin Level 4.9 ug/mL (5-10) Lactic Acid Level 3.8 mmol/L (0.4-2.0) Stool Occult Blood Negative (Negative) Stool Occult Blood Sample #3 (Negative) Stool for White Cells Rare Test 11/06/24 11:28 11/06/24 08:24 11/06/24 07:57 Troponin I High Sensitivity 4 ng/L (</=54) Hemoglobin A1c 10.0 % A1C (<5.7) Magnesium Level 1.6 mg/dL (1.6-2.6) Lipase 25 U/L (12-53) Urine Color Light-orange (Yellow) Urine Clarity Turbid (Clear) Urine pH 5.5 (5.0-9.0) Urine Specific [place] 1.023 (1.001-1.035) Urine Protein 1+ (Negative) Urine Ketones 2+ (Negative) Urine Blood 2+ /uL (Negative) Urine Nitrite Negative (Negative) Urine Bilirubin Negative (Negative) Urine Urobilinogen Normal mg/dL (Negative) Urine Leukocyte Esterase Negative /uL (Negative) Urine RBC 3 /hpf (0 - 3) Urine Microscopic WBC 2 /HPF (0-3) Urine Squamous Epithelial Cells Few /hpf (<5) Urine Bacteria None seen /hpf (None Seen) Urine Granular Casts Mod /lpf (0) Urine Mucus Few (None Seen) Urine Glucose 4+ mg/dL (Normal) Other Laboratory Tests 11/07/24 06:15 Brief Hx & Hospital Course: 39-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 Complained of generalized weakness and nausea with some vomiting. CT abdomen pelvis without contrast negative found to have new onset diabetes with a blood sugars in the range of 300 with a A1c 10.2. Patient on insulin sliding scale. Patient was taught about checking his blood sugars for his new onset diabetes. Blood sugars controlled now patient feels better no nausea discharged home on metformin prescription for Accu-Chek machine lancets and test strips given to the patient he will follow up with his primary Dr in one week. General condition satisfactory at the time of discharge. Consults/Reason for consult None Operations or Procedures CT abdomen pelvis without contrast Condition at Discharge: Fair Final Diagnosis/Problems List Uncontrolled new onset type 2 diabetes with blood sugars 300 A1c 10.0: Insulin aggressive sliding scale, diabetic education Abdominal pain with the nausea and diarrhea: C diff negative stool cultures negative blood cultures negative, abdominal pain better now JOSE D Chronic current smoker Acute lactic acidosis resolved Acute dehydration resolved Discharge Disposition: Home Discharge Instruct/Medications Diet: Consistent carbohydrate Activity: Light activity Follow Up/Referral: You have newly diagnosed diabetes type 2 Check blood sugars 3 times a day and take medications as prescribed Follow up with the primary Dr in one week Medications: Metformin 1000 mg p.o. b.i.d. 180 [facility] Handwritten prescription given for Accu-Chek machine lancets and test strips Scheduled Metformin Hydrochloride (Metformin Hcl), 1 TAB PO BID 39 (Time taken for discharge summary 39 minutes) Discharge Statement: "Patient was advised to return to the ER or call 911 if any headaches, dizziness, shortness of breath, chest pain, abdominal pain, bleeding, fevers, or worsening of medical condition. Patient was counseled about treatment plan, medications, possible side effects, patientverbalized understanding. All questions were answered to the best of my ability. This discharge took greater then 30 minutes in planning, reviewing documentation, counseling the patient, and discussing with other team members." ASSESSMENT ASSESSMENT Hospital Course Improved Assessment Uncontrolled new onset type 2 diabetes with blood sugars 300 A1c 10.0: Insulin aggressive sliding scale, diabetic education Abdominal pain with the nausea and diarrhea: C diff negative stool cultures negative blood cultures negative, abdominal pain better now JOSE D Chronic current smoker Acute lactic acidosis resolved Acute dehydration resolved Date of Service: Nov 09, 2024 Billing Provider: ALLEY FELIX MD Common Visit Codes: 84697-MZX/OBS DISCH DAY >30min ALLEY FELIX MD Nov 09, 2024 10:00
[2024-11-09 10:52] VITALS: TEMP 37.2
[2024-11-09 13:00] VITALS: BP 108/86; PULSE 121; RESP 18; TEMP 98.5; O2SAT 96
[2024-11-09] MEDS: MAALOX PLUS or MAALOX 30 ML PO ONE (14:13)
--- NOTE | 2024-11-10 10:53 | ECG ---
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
--- NOTE | 2024-11-10 10:54 | ECG ---
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
--- NOTE | 2024-11-10 10:54 | ECG ---
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
== END 2024-11-09 14:58 | disposition home or self-care (01) | DRG 682 ==
LOC: ER 07:48 → EDBD 07:48 → OVERFLOW 14:00 → CENTRAL 17:29
DX: N17.0 Acute kidney failure with tubular necrosis (principal); E11.10 Type 2 diabetes mellitus with ketoacidosis without coma; I47.10 Supraventricular tachycardia, unspecified; Z68.1 Body mass index [BMI] 19.9 or less, adult; R11.2 Nausea with vomiting, unspecified; E87.6 Hypokalemia; I49.5 Sick sinus syndrome; R79.89 Other specified abnormal findings of blood chemistry; E66.9 Obesity, unspecified; E80.6 Other disorders of bilirubin metabolism; E86.0 Dehydration; F17.210 Nicotine dependence, cigarettes, uncomplicated; Z83.3 Family history of diabetes mellitus
CPT/HCPCS: 36415; 71045; 74176; 80053; 80202; 81001; 82270; 82962; 83036; 83605; 83690; 83735; 84484; 85025; 85048; 87040; 87045; 87086; 87177; 87427; 87493; 93005; 96361; 96374; G0378; J1815; J2405; J2470; J2543